=== PATIENT | male | born 1985 | race American Indian/Alaskan Native ===

== ENCOUNTER 2017-07-10 11:29 | Emergency (ER) | payer SELFPAY ==
[2017-07-10 11:33] VITALS: BMI 19.3
[2017-07-10 11:36] VITALS: BP 128/89; TEMP 98.3
--- NOTE | 2017-07-10 12:09 | C.PDOC ---
History Of Present Illness 31 y/o male presents to ED with complaints of itchy rash to bilateral antecubital fossae since March. Patient reports rash expanding to knees, eyelids and forehead. Patient states he tried OTC medication with no relief which prompted visit to ED today and denies prior history of similar symptoms. Patient states he has skin breaks because he scratches so much; denies fever, chills, n/v or any other complaints at this time. Time Seen by Provider: 07/10/17 11:41 Chief Complaint (Nursing): Abnormal Skin Integrity History Per: Patient History/Exam Limitations: no limitations Onset/Duration Of Symptoms: Days Current Symptoms Are (Timing): Still Present Quality Of Symptoms: Itching Past Medical History Reviewed: Historical Data, Nursing Documentation, Vital Signs Vital Signs: Last Vital Signs Temp 98.3 F 07/10/17 11:34 Pulse 94 H 07/10/17 12:18 Resp 17 07/10/17 12:18 BP 128/89 07/10/17 11:34 Pulse Ox 100 07/13/17 21:09 - Medical History PMH: No Chronic Diseases Surgical History: No Surg Hx Family History: States: No Known Family Hx - Social History Hx Alcohol Use: Yes Hx Substance Use: No - Immunization History Hx Tetanus Toxoid Vaccination: No Hx Influenza Vaccination: No Hx Pneumococcal Vaccination: No Review Of Systems Constitutional: Negative for: Fever, Chills Skin: Positive for: Rash Neurological: Negative for: Weakness, Numbness Physical Exam - Physical Exam Appears: Non-toxic, No Acute Distress Skin: Rash (Scaly, crusty álvarez to entire anterior antecubital fossae bilateral, posterior knees and occasional breaks noted in skin on arms, with no swelling, erythema or warmth. No signs of infection) Head: Normacephalic Eye(s): bilateral: Normal Inspection Neck: Normal ROM, Supple Extremity: Normal ROM, Capillary Refill (<2 seconds) Neurological/Psych: Oriented x3, Normal Speech, Normal Cognition, Normal Motor, Normal Sensation ED Course And Treatment O2 Sat by Pulse Oximetry: 100 (RA) Pulse Ox Interpretation: Normal Medical Decision Making Medical Decision Making: pt with scaly rash to anterior arms, posterior knees and forehead, appears consistent with eczema; will start on hydrocrtisone cream and derm f/u. Disposition Counseled Patient/Family Regarding: Diagnosis, Need For Followup, Rx Given - Disposition Referrals: Clinic,Med Surg [Primary Care Provider] - [facility] [Outside] [facility] [place] [Outside] Disposition: HOME/ ROUTINE Disposition Time: 12:06 Condition: STABLE Additional Instructions: Moisturize frequently. Avoid sudden changes in temperature or humidity. Avoid sweating or overheating. Reduce stress. Avoid scratchy materials, such as wool. Avoid harsh soaps, detergents, and solvents. Be aware of any foods that may cause an outbreak and avoid those foods. Follow up in medical clinic. Use hydrocortisone 1% cream on affected areas 1-2 times per day. Take Loratidine 10 mg once a day for itching. Return to ER for any signs of infections such as redness, swelling, discharge. pain at sites of rash. Prescriptions: Hydrocortisone 1% Cream [Cortizone 1% Cream] 1 applic TP DAILY #1 tube Loratadine 10 mg PO DAILY #30 tablet Forms: General Discharge Instructions, [facility] (Hungarian) - Clinical Impression Clinical Impression: Eczema - Scribe Statement The provider has reviewed the documentation as recorded by the Lillian Nick All medical record entries made by the Kiritibkaren were at my direction and personally dictated by me. I have reviewed the chart and agree that the record accurately reflects my personal performance of the history, physical exam, medical decision making, and the department course for this patient. I have also personally directed, reviewed, and agree with the discharge instructions and disposition.
[2017-07-10 12:19] VITALS: PULSE 94; RESP 17
[2017-07-10 12:27] VITALS: O2SAT 100
== END 2017-07-10 12:20 | disposition home or self-care (01) ==
LOC: C.ER 11:29 → SUPCPDRO 11:29 → C.ER 12:20
DX: L30.9 Dermatitis, unspecified (principal)